=== PATIENT | male | born 1995 | race African-American/Black ===

== ENCOUNTER 2022-01-31 20:19 | Emergency (ER) | payer SELFPAY ==
[2022-01-31] MEDS ORDERED: METOCLOPRAMIDE HCL INJECTION 10 MG/2 ML VIAL IVPUSH ONE (21:18)
[2022-01-31] MEDS ORDERED: SODIUM CHLORIDE 0.9% 500 ML INFUS.BAG IV ONE (21:18)
[2022-01-31] MEDS ORDERED: FAMOTIDINE 20 MG/50 ML IVPB 20 MG/50 ML MG IVPB ONE (21:18)
[2022-01-31] MEDS ORDERED: ACETAMINOPHEN 1000 MG/100 ML BAG IVPB ONE (21:18)
[2022-01-31 21:36] LABS: BASO % 0.5 % (0-2.0); EOS % 0.1 % (0-4.5); HEMATOCRIT 44.6 % (35.4-49); HEMOGLOBIN 15.4 GM/dL (11.7-16.9); LYMPH % 13.4 % (8-40); MCH 30.1 pg (25.7-33.7); MCHC 34.6 g/dl (32.0-35.9); MEAN PLT VOLUME 8.3 fl (7.5-11.1); MONO % 13.6 % (3.8-10.2); NEUT % 72.4 % (42.8-82.8); PLATELET COUNT 232 10^3/uL (134-434); RBC 5.13 M/mm3 (4.00-5.60); RDW 14.1 % (11.9-15.9); WHITE BLOOD COUNT 7.3 K/mm3 (4.0-10.0)
[2022-01-31 21:54] LABS: CALCIUM 9.9 mg/dL (8.5-10.1)
[2022-01-31 21:55] LABS: ALBUMIN 4.9 g/dl (3.4-5.0); BLOOD UREA NITROGEN 7.7 mg/dL (7-18)
[2022-01-31 22:00] LABS: BILIRUBIN,TOTAL 1.3 mg/dL (0.2-1); TOT PROT 8.5 g/dl (6.4-8.2)
[2022-01-31 22:14] VITALS: BMI 20.3
[2022-02-01 00:08] LABS: EPI CELLS 18 /uL (0-25.1); HYALINE CASTS 6 /uL (0-3.1); URINE APPEARANCE CLEAR; URINE BACTERIA 43 /uL (0-1359); URINE BILIRUBIN NEGATIVE (NEGATIVE); URINE COLOR YELLOW; URINE GLUCOSE (UA) NEGATIVE (NEGATIVE); URINE KETONE 3+ (NEGATIVE); URINE LEUK ESTERASE NEGATIVE (NEGATIVE); URINE NITRITE NEGATIVE (NEGATIVE); URINE PROTEIN 1+ (NEGATIVE); URINE RBC 8 /uL (0-23.9); URINE UROBILINOGEN 0.2 mg/dL (0.2-1.0); URINE WBC 4 /uL (0-25.8)
[2022-02-01 01:28] VITALS: BP 102/63; PULSE 63; TEMP 98.4
== END 2022-02-01 01:28 | disposition home or self-care (01) ==
LOC: JER 20:19
PROC: 3E0333Z Introduction of Anti-inflammatory into Peripheral Vein, Percutaneous Approach (ICD-10-PCS; principal; 2022-01-31)
PROC: 3E033GC Introduction of Other Therapeutic Substance into Peripheral Vein, Percutaneous Approach (ICD-10-PCS; 2022-01-31)
PROC: 3E033GC Introduction of Other Therapeutic Substance into Peripheral Vein, Percutaneous Approach (ICD-10-PCS; 2022-01-31)
DX: U07.1 COVID-19 (principal)
CPT/HCPCS: 0241U-QW; 36415; 71046-TC-FY; 80053; 81003; 85025; 93005; 93010; 99285-25

== ENCOUNTER 2024-01-15 11:16 | Emergency (ER) | payer OTHER ==
[2024-01-15 11:22] VITALS: BP 109/66; PULSE 85; RESP 18; TEMP 98.6; BMI 20.3
[2024-01-15] MEDS ORDERED: AMOX TR/POT CLAV 500MG/125MG TABLETS (FP) ONE (11:34)
[2024-01-15] MEDS: AMOX TR/POT CLAV 500MG/125MG TABLETS (FP) PO ONE (11:36)
== END 2024-01-15 11:41 | disposition home or self-care (01) ==
LOC: JERFT 11:16
DX: S02.5XXA Fracture of tooth (traumatic), initial encounter for closed fracture (principal); X58.XXXA Exposure to other specified factors, initial encounter
CPT/HCPCS: 99283-25